=== PATIENT | male | born 1975 | race Caucasian/White ===

== ENCOUNTER 2019-12-10 11:31 | Inpatient (IN) | payer OTHER ==
[2019-12-10 11:37] VITALS: BMI 28.2
[2019-12-10] MEDS ORDERED: SODIUM CHLORIDE 1,000 ML IV STA ×2 (11:38→12:14)
--- NOTE | 2019-12-10 11:38 | PDOC ---
Rapid Medical Evaluation Chief Complaint: Nausea/Vomiting Time Seen by Provider: 12/10/19 11:34 Medical Evaluation: 12/10/19 11:34 I have performed a brief in-person evaluation of this patient. The patient presents with a chief complaint of: Abd pain w/ n/v and dizziness x 2 weeks. No change in BM, dysuria, f/c. H/o ETOH abuse, last drank several hrs ago, feels like he in in withdrawal. Last year had similar sxs and was started on HD "because my kidneys shut down". No longer on HD per pt. Also has h/o pancreatitis and "elevated liver tests" on prior labs Pertinent physical exam findings:Tachy to 107, appears anxious w/ slight tremors I have ordered the following:labs The patient will proceed to the ED for further evaluation Discharge Disposition - Diagnosis Dizziness Nausea & vomiting Qualifiers: Vomiting type: unspecified Vomiting Intractability: non-intractable Qualified Code(s): R11.2 - Nausea with vomiting, unspecified Abdominal pain Qualifiers: Abdominal location: unspecified location Qualified Code(s): R10.9 - Unspecified abdominal pain - Referrals - Patient Instructions - Post Discharge Activity
[2019-12-10] MEDS ORDERED: ONDANSETRON 4 MG/2 ML VIAL IVPUSH ONE (11:39)
[2019-12-10] MEDS ORDERED: FAMOTIDINE 20 MG/50 ML IVPB 20 MG/50 ML MG IVPB ONE ×2 (12:14→12:26)
[2019-12-10] MEDS ORDERED: chlordiazePOXIDE HCL 25 MG CAPSULE PO ONE (12:27)
--- NOTE | 2019-12-10 12:37 | PDOC ---
Documentation entered by Mahnaz Donovan SCRIBE, acting as scribe for Spencer Simms MD. Spencer Simms MD: This documentation has been prepared by the Zion bueno Adrianna, SCRIBE, under my direction and personally reviewed by me in its entirety. I confirm that the documentation accurately reflects all work, treatment, procedures, and medical decision making performed by me. History of Present Illness - General Chief Complaint: Nausea/Vomiting Stated Complaint: NAUSEA/VOMITING Time Seen by Provider: 12/10/19 11:34 - History of Present Illness Initial Comments: The patient is a 44 year old maele, with a significant PMH of EtOH and heroin abuse, pancreatitis, who presents to the ED for evaluation of abdominal pain for 2 weeks. Patient complains of predominantly epigastric abdominal pain with associated nausea, vomit, dehydration, diaphoresis and dizziness. He admits to being a heavy drinker (cannot quantify how much he drinks but states its a lot) as well as snorting heroin. He reports multiple episodes of vomit, noting he cannot keep anything down and he feels SOB with chest tightness when he vomits. Patient reports last drinking 3-4 hours ago, and feels as if he is withdrawing. Patient reports a similar episode of symptoms last year, and was on hemodialysis because of problems with his kidneys (no longer on HD). Patient is interested in detox at this time. Denies fever, chills, cough, diarrhea, constipation, blood in stool, dysuria, hematuria. Allergies: NKA, NKDA Surgical History: Appendectomy Social History: EtOH and heroin abuse PCP: Doesnt have one (referred to Ronnie Block) Past History - Medical History Allergies/Adverse Reactions: Allergies Allergy/AdvReac Type Severity Reaction Status Date / Time No Known Allergies Allergy Verified 12/10/19 11:37 COPD: No Liver Disease: Yes Other medical history: dialysis last year, pancreatitis - Psycho-Social/Smoking History Smoking History: Current every day smoker Information on smoking cessation initiated: No - Substance Abuse Hx (Audit-C & DAST Scrn) How often the patient has a drink containing alcohol: 4 0r more times/wk Number of drinks the patient has on a typical day: 7 to 9 How often the patient has six or more drinks on one occasion: Daily or almost daily Score: In Men: 4 or > Positive; In Women: 3 or > Positive: 11 Screen Result (Pos requires Nsg. Audit-10AR): Positive Review of Systems - Review of Systems Comments:: CONSTITUTIONAL: +Diaphoresis. +Dehydrated. +Heroin and EtOH use. No reported: Fever, Chills, Generalized Weakness, Malaise, Loss of Appetite HEENT: No reported: Rhinorrhea, Nasal Congestion, Throat Pain, Throat Swelling, Difficulty Swallowing, Mouth Swelling, Ear Pain, Eye Pain, Visual Changes CARDIOVASCULAR: +Chest tightness 2/2 multiple episodes of vomit. No reported: Syncope, Palpitations, Irregular Heart Rate, Peripheral Edema RESPIRATORY: +SOB 2/2 multiple episodes of vomit. No reported: Cough, Shortness of Breath, SOB with Exertion, Orthopnea, Wheezing, Stridor, Hemoptysis GASTROINTESTINAL: +Epigastric abdominal pain. +Nausea. +Vomit. No reported: Abdominal Distension, Diarrhea, Constipation, Melena, Hematochezia GENITOURINARY: No reported: Dysuria, Frequency, Urgency, Hesitancy, Flank Pain, Genital Pain MUSCULOSKELETAL: No reported: Myalgia, Arthralgia, Joint Swelling, Back pain, Neck Pain SKIN: No reported: Rash, Itching, Pallor HEMATOLOGIC/IMMUNOLOGIC: No reported: Easy Bleeding, Easy Bruising, Lymphadenopathy, Frequent infections ENDOCRINE: No reported: Unexplained Weight Gain, Unexplained Weight Loss, Heat Intolerance, Cold Intolerance NEUROLOGIC: +Dizziness. No reported: Headache, Focal Weakness, Paresthesias, Vertigo, Unsteady Gait, Seizure, Mental Status Changes, Incontinence PSYCHIATRIC: No reported: Anxiety, Depression *Physical Exam - Vital Signs Last Vital Signs Temp Pulse Resp BP Pulse Ox 98.4 F 106 H 18 135/97 99 12/10/19 11:32 12/10/19 11:32 12/10/19 11:32 12/10/19 11:32 12/10/19 11:32 - Physical Exam GENERAL: The patient is awake, alert, and fully oriented, Nontoxic - in no acute distress. HEAD: Normocephalic, atraumatic. EYES: extraocular movements intact, sclera anicteric, conjunctiva clear. ENT: Normal voice, Moist mucous membranes. NECK: Normal range of motion, supple LUNGS: Breath sounds equal, clear to auscultation bilaterally. No wheezes, no rhonchi, no rales. HEART: Regular rate and rhythm, without murmur, rub or gallop. ABDOMEN: + epigastric TTP, No guarding, no rebound.No CVA tenderness EXTREMITIES: Normal range of motion, no edema. No cyanosis. No erythema, or tenderness. NEUROLOGICAL: No facial asymmetry, Normal speech, PSYCH: Normal mood, normal affect. SKIN: Warm, Dry, normal turgor. Heart Score/ECG Review - ECG Impressions Normal ECG: No Comment:: ECG performed at 13:31 on 12/10/2019 demonstrates normal sinus rhythm at 87bpm. Prolonged QT. ED Treatment Course - LABORATORY CBC & Chemistry Diagram: 12/10/19 12:15 12/10/19 12:15 - RADIOLOGY Radiograph Interpretation: EXAM#: TYPE/EXAM: RESULT: [id number] RAD/CHEST PA LAT Clinical information: Chest pain. Impression Unremarkable examination without evidence of acute lung disease. Reported By: Loly Dasilva MD 12/10/19 13:37 Medical Decision Making - Medical Decision Making 12/10/19 13:42 44 M with abdominal pain, vomiting, CP/SOB. Likely 2/2 ETOH withdrawal. Pt tremulous on exam. - Labs, lipase - EKG - CXR - Librium, GI cocktail 12/10/19 13:43 Labs with lipase >1200 Likely pancreatitis 2/2 ETOH Will obtain RUQ sono to r/o stone Discharge - Discharge Information Problems reviewed: Yes Clinical Impression/Diagnosis: Dizziness, Pancreatitis Nausea & vomiting Qualifiers: Vomiting type: unspecified Vomiting Intractability: non-intractable Qualified Code(s): R11.2 - Nausea with vomiting, unspecified Abdominal pain Qualifiers: Abdominal location: unspecified location Qualified Code(s): R10.9 - Unspecified abdominal pain - Admission Yes - Follow up/Referral - Patient Discharge Instructions - Post Discharge Activity
[2019-12-10 12:42] LABS: BASO % 0.5 % (0-2.0); EOS % 0.2 % (0-4.5); HEMATOCRIT 41.3 % (35.4-49); HEMOGLOBIN 14.3 GM/dL (11.7-16.9); LYMPH % 15.2 % (8-40); MCH 32.3 pg (25.7-33.7); MCHC 34.6 g/dl (32.0-35.9); MEAN CELL VOLUME 93.3 fl (80-96); MEAN PLT VOLUME 9.2 fl (7.5-11.1); MONO % 8.1 % (3.8-10.2); PLATELET COUNT 122 K/MM3 (134-434); RBC 4.43 M/mm3 (4.00-5.60); RDW 14.5 % (11.9-15.9); WHITE BLOOD COUNT 6.3 K/mm3 (4.0-10.0)
[2019-12-10] MEDS ORDERED: chlordiazePOXIDE HCL 25 MG CAPSULE ONE (12:47)
[2019-12-10 13:16] LABS: ALBUMIN 4.8 g/dl (3.4-5.0); ALK PHOS 191 U/L (45-117); BLOOD UREA NITROGEN 43.2 mg/dL (7-18); CALCIUM 9.4 mg/dL (8.5-10.1); CHLORIDE 88 mmol/L (98-107); CO2 27 mmol/L (21-32); CREATININE 1.6 mg/dL (0.55-1.3); GLUCOSE,RANDOM 152 mg/dL (74-106); LIPASE 1299 U/L (73-393); SGOT/AST 204 U/L (15-37); SGPT/ALT 133 U/L (13-61); SODIUM 131 mmol/L (136-145); TOT PROT 9.1 g/dl (6.4-8.2)
[2019-12-10 13:56] LABS: ANION GAP 17 MMOL/L (8-16)
[2019-12-10 14:01] LABS: POTASSIUM 2.8 mmol/L (3.5-5.1)
[2019-12-10] MEDS ORDERED: LORazepam 2 MG/ML SDV VIAL IVPUSH PRN (14:31)
--- NOTE | 2019-12-10 14:39 | EKG ---
Test Reason : Blood Pressure : / mmHG Vent. Rate : 087 BPM Atrial Rate : 087 BPM P-R Int : 114 ms QRS Dur : 084 ms QT Int : 408 ms P-R-T Axes : 067 016 031 degrees QTc Int : 490 ms NORMAL SINUS RHYTHM PROLONGED QT ABNORMAL ECG WHEN COMPARED WITH ECG OF 19-JUL-2004 11:45, QT HAS LENGTHENED Confirmed by MD Salazar, Miles ([id number]) on 12/10/2019 2:39:01 PM Referred By: Confirmed By:Miles Lincoln MD
[2019-12-10] MEDS ORDERED: KCL 10 MEQ IVPB 10 MEQ/100 ML INFUS.BAG IVPB ONE ×2 (14:53→16:24)
[2019-12-10] MEDS: LACTATED RINGERS SOLUTION 1,000 ML IV SCH (15:03)
[2019-12-10] MEDS: KCL 10 MEQ IVPB 10 MEQ/100 ML INFUS.BAG IVPB SCH ×2 (15:03→16:25)
--- NOTE | 2019-12-10 15:33 | HP ---
CHIEF COMPLAINT: abdominal pain PCP: none HISTORY OF PRESENT ILLNESS: Patient is a 44 year old male with past medical history of polysubstance abuse, pancreatitis (3 years ago), ?SUMANTH vs CKD (2018, received dialysis for a month), sciatica, presented to the ED with abdominal pain, accompanied by nausea and vomiting for about 1-2 weeks. 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 For the past 2 weeks, patient started experiencing abdominal pain, described as sharp, intermittent RUQ/epigastric pain. This was accompanied by NBNB vomiting. Patient reported he would keep on drinking alcohol, and his symptoms would improve. Today, patient experienced the abdominal pain again, and decided to come to the ED. Patient denies any fevers, chills, headache, dizziness chest pain, SOB, diarrhea, urinary symptoms.Denies recent illness or sick contacts. ER course was notable for: (1)Lipase >1200, AST 204/ALT 133/Alk phos 191 (2) (3) Recent Travel: denies PAST MEDICAL HISTORY: polysubstance abuse pancreatitis (3 years ago) ?SUMANTH vs CKD (2018, received dialysis for a month) sciatica PAST SURGICAL HISTORY: none Social History: Smokin cigarettes per day >10 years Alcohol: >10 nips of various alcohol in the last 2 months Drugs: snorts 5 bags of heroin a day in the last 2 months Allergies No Known Allergies Allergy (Verified 12/10/19 11:37) HOME MEDICATIONS: none REVIEW OF SYSTEMS CONSTITUTIONAL: Absent: fever, chills, diaphoresis, generalized weakness, malaise, loss of appetite, weight change HEENT: Absent: rhinorrhea, nasal congestion, throat pain, throat swelling, difficulty swallowing, mouth swelling, ear pain, eye pain, visual changes CARDIOVASCULAR: Absent: chest pain, syncope, palpitations, irregular heart rate, lightheadedness, peripheral edema RESPIRATORY: Absent: cough, shortness of breath, dyspnea with exertion, orthopnea, wheezing, stridor, hemoptysis GASTROINTESTINAL:abdominal pain Absent: abdominal distension, nausea, vomiting, diarrhea, constipation, melena, hematochezia GENITOURINARY: Absent: dysuria, frequency, urgency, hesitancy, hematuria, flank pain, genital pain MUSCULOSKELETAL: Absent: myalgia, arthralgia, joint swelling, back pain, neck pain SKIN: Absent: rash, itching, pallor HEMATOLOGIC/IMMUNOLOGIC: Absent: easy bleeding, easy bruising, lymphadenopathy, frequent infections ENDOCRINE: Absent: unexplained weight gain, unexplained weight loss, heat intolerance, cold intolerance NEUROLOGIC: Absent: headache, focal weakness or paresthesias, dizziness, unsteady gait, seizure, mental status changes, bladder or bowel incontinence PSYCHIATRIC: Absent: anxiety, depression, suicidal or homicidal ideation, hallucinations. PHYSICAL EXAMINATION Vital Signs - 24 hr 12/10/19 12/10/19 11:32 14:51 Temperature 98.4 F Pulse Rate 106 H Pulse Rate [ 97 H Left] Respiratory 18 16 Rate Blood Pressure 135/97 Blood Pressure 148/91 [Left] O2 Sat by Pulse 99 99 Oximetry (%) GENERAL: Awake, alert, and fully oriented, in no acute distress. HEAD: Normal with no signs of trauma. EYES:PERRLA, EOMI, extraocular movements intact, sclera anicteric, conjunctiva clear. EARS, NOSE, THROAT: Dry mucous membranes. NECK: Normal range of motion, supple LUNGS: Breath sounds equal, clear to auscultation bilaterally. HEART: Regular rate and rhythm, normal S1 and S2 ABDOMEN: Soft,+RUQ/epigastric tenderness, not distended, normoactive bowel sounds MUSCULOSKELETAL: Normal range of motion at all joints. LOWER EXTREMITIES: 2+ pulses, warm, well-perfused. No peripheral edema. NEUROLOGICAL: Cranial nerves II-XII intact. Normal speech. Normal gait. PSYCHIATRIC: Cooperative. Good eye contact SKIN: Warm, dry, normal turgor Laboratory Results - last 24 hr 12/10/19 12/10/19 12:15 12:15 WBC 6.3 RBC 4.43 Hgb 14.3 Hct 41.3 MCV 93.3 MCH 32.3 MCHC 34.6 RDW 14.5 Plt Count 122 L MPV 9.2 Absolute Neuts (auto) 4.8 Neutrophils % 76.0 Lymphocytes % 15.2 Monocytes % 8.1 Eosinophils % 0.2 Basophils % 0.5 Nucleated RBC % 0 Sodium 131 L Potassium 2.8 L* Chloride 88 L Carbon Dioxide 27 Anion Gap 17 H BUN 43.2 H Creatinine 1.6 H Est GFR (CKD-EPI)AfAm 59.42 Est GFR (CKD-EPI)NonAf 51.27 Random Glucose 152 H Calcium 9.4 Total Bilirubin 1.0 AST 204 H ALT 133 H Alkaline Phosphatase 191 H Creatine Kinase 695 H Creatine Kinase Index 0.4 CK-MB (CK-2) 3.0 Troponin I < 0.02 Total Protein 9.1 H Albumin 4.8 Lipase 1299 H ASSESSMENT/PLAN: Patient is a 44 year old male with past medical history of polysubstance abuse, pancreatitis (3 years ago), ?SUMANTH vs CKD (2018, received dialysis for a month), sciatica, presented to the ED with abdominal pain, accompanied by nausea and vomiting for about 1-2 weeks. #Acute pancreatitis -abdominal pain, Lipase >2000 -CT scan with contrast not done in light of renal function -will keep patient NPo for now -IVF -Protonix 40mg daily -Morphine as needed for pain #SUMANTH vs CKD -unclear if this is patients baseline, as he reported he had renal failure 3 years ago and had dialysis for a month -sister will bring previous records from [place] tomorrow -in the meantime, will give IVF for likely dehydration -urine osm, urine electrolytes, urine creatinine #Transaminitis -AST 204/ALT 133/Alk phos 191 -likely 2/2 alcohol use -Abdominal US - Hepatomegaly with diffuse fatty infiltration of the liver. -Hepatitis panel -lipid panel #Alcohol use -CIWA 8 -will start IV ativan protocol as patient is NPO -neurochecks -seizure and fall precautions -Thiamine, folic acid, mv #Heroin use -COWS 8 -snorts 5 bags of heroin a day for the past 2-3 months -will consult senior publications specialist #Prolonged QTc -QTc 490 , EKG NSR -avoid QT prolonging agents #Hyponatremia #Hypokalemia -Na 131, K 2.8, likely 2/2 poor PO intake, and GI loss from vomiting, etoh use -will replete and continue to monitor -serum osm, urine osm, urine electrolytes #FEN -IV LR @125cc/hr -hypoNa, hypoK, routine bmp monitoring -NPO #Prophylaxis -Heparin 5000u sq tid #Disposition -full code -admit to med surg Visit type - Emergency Visit Emergency Visit: Yes ED Registration Date: 12/10/19 Care time: The patient presented to the Emergency Department on the above date and was hospitalized for further evaluation of their emergent condition. - New Patient This patient is new to me today: Yes Date on this admission: 12/11/19 - Critical Care Critical Care patient: No ATTENDING PHYSICIAN STATEMENT I saw and evaluated the patient. I reviewed the resident's note and discussed the case with the resident. I agree with the resident's findings and plan as documented. SUBJECTIVE: OBJECTIVE: ASSESSMENT AND PLAN:
[2019-12-10 15:36] LABS: EPI CELLS 23 /uL (0-25.1); HYALINE CASTS 5 /uL (0-3.1); URINE APPEARANCE CLOUDY; URINE BACTERIA 2 /uL (0-1359); URINE BILIRUBIN NEGATIVE (NEGATIVE); URINE COLOR YELLOW; URINE GLUCOSE (UA) TRACE (NEGATIVE); URINE KETONE NEGATIVE (NEGATIVE); URINE LEUK ESTERASE NEGATIVE (NEGATIVE); URINE NITRITE NEGATIVE (NEGATIVE); URINE PROTEIN 2+ (NEGATIVE); URINE RBC 15 /uL (0-23.9); URINE WBC 15 /uL (0-25.8)
[2019-12-10] MEDS ORDERED: FOLIC ACID INJECTION - 1 MG, THIAMINE HCL 100 MG, MULTIVIT INJECTION ADULT 10 ML in SOD... IVPB ONE (16:33)
[2019-12-10] MEDS ORDERED: LORazepam 2 MG/ML SDV VIAL ONE (18:38)
[2019-12-10 18:41] LABS: OSMOLALITY,SERUM 307 mosm/kg (278-305)
[2019-12-10] MEDS: LORazepam 2 MG/ML SDV VIAL IVPUSH PRN (18:46)
[2019-12-10] MEDS ORDERED: MORPHINE SULFATE 2 MG/ML VIAL IVPUSH ONE (20:51)
[2019-12-10] MEDS ORDERED: MORPHINE SULFATE 2 MG/ML VIAL ONE (22:00)
[2019-12-10] MEDS ORDERED: HEPARIN NA (PORCINE) 5,000 UNITS/ML 1ML VIAL ONE (22:01)
[2019-12-10] MEDS: HEPARIN NA (PORCINE) 5,000 UNITS/ML 1ML VIAL SQ SCH (22:19)
[2019-12-11] MEDS ORDERED: MORPHINE SULFATE 2 MG/ML VIAL IVPUSH PRN
[2019-12-11] MEDS ORDERED: LORazepam 2 MG/ML SDV VIAL ONE (02:40)
[2019-12-11] MEDS ORDERED: MORPHINE SULFATE 2 MG/ML VIAL ONE (06:06)
[2019-12-11] MEDS ORDERED: HEPARIN NA (PORCINE) 5,000 UNITS/ML 1ML VIAL ONE (06:07)
[2019-12-11] MEDS: HEPARIN NA (PORCINE) 5,000 UNITS/ML 1ML VIAL SQ SCH ×3 (06:22→21:07)
[2019-12-11 07:44] LABS: BASO % 0.7 % (0-2.0); EOS % 0.9 % (0-4.5); HEMATOCRIT 34.5 % (35.4-49); HEMOGLOBIN 11.7 GM/dL (11.7-16.9); LYMPH % 33.3 % (8-40); MCH 31.3 pg (25.7-33.7); MCHC 33.8 g/dl (32.0-35.9); MEAN CELL VOLUME 92.5 fl (80-96); MEAN PLT VOLUME 8.6 fl (7.5-11.1); MONO % 6.3 % (3.8-10.2); NEUT % 58.8 % (42.8-82.8); PLATELET COUNT 100 K/MM3 (134-434); RBC 3.72 M/mm3 (4.00-5.60); RDW 14.3 % (11.9-15.9); WHITE BLOOD COUNT 4.4 K/mm3 (4.0-10.0)
[2019-12-11 07:52] LABS: INR 0.92 (0.83-1.09); PROTHROMBIN TIME (PATIENT) 10.8 SEC (9.7-13.0)
[2019-12-11 07:54] LABS: ACTIVATED PTT 26.6 SECONDS (25.2-36.5)
[2019-12-11 08:06] LABS: ALBUMIN 3.6 g/dl (3.4-5.0); BILIRUBIN,TOTAL 1.2 mg/dL (0.2-1); BLOOD UREA NITROGEN 27.3 mg/dL (7-18); CALCIUM 7.8 mg/dL (8.5-10.1); MAGNESIUM 2.5 mg/dL (1.8-2.4)
[2019-12-11 08:08] LABS: POTASSIUM 2.7 mmol/L (3.5-5.1)
[2019-12-11] MEDS ORDERED: POTASSIUM CHLORIDE TABS 10 MEQ TABLET.ER (FP) PO ONE (08:11)
[2019-12-11] MEDS ORDERED: KCL 10 MEQ IVPB 30 MEQ/300 ML INFUS.BAG IVPB ONE (08:21)
[2019-12-11] MEDS: KCL 10 MEQ IVPB 10 MEQ/100 ML INFUS.BAG IVPB SCH ×3 (08:29→12:25)
--- NOTE | 2019-12-11 08:33 | PN ---
Teaching Attending Note Name of Resident: Malka Adorno ATTENDING PHYSICIAN STATEMENT I saw and evaluated the patient. I reviewed the resident's note and discussed the case with the resident. I agree with the resident's findings and plan as documented. SUBJECTIVE: Mild abdominal pain feels improved tolerating p.o. OBJECTIVE: Vital Signs Temperature 98.3 F 12/11/19 07:58 Pulse Rate 67 12/11/19 07:58 Respiratory Rate 18 12/11/19 07:58 Blood Pressure 114/81 12/11/19 07:58 O2 Sat by Pulse Oximetry (%) 98 12/11/19 07:58 General: Young man, comfortable, not in distress HEENT mucous membranes moist, no anemia, no jaundice, PERRLA, no nystagmus Neck: No JVD, supple, no bruit, thyroid palpably normal, normal carotid pulsations. Chest: Nontender, clear to auscultation bilaterally CVS: S1-S2 regular no murmur/gallop/rub Abdomen: Mild epigastric tenderness, soft, bowel sounds present. Extremities: No edema., No Calf tenderness, pulses present AUTOMATION QA TESTER: AO X3 , no gross motor sensory deficit CBC,CMP WBC 4.4 K/mm3 (4.0-10.0) 12/11/19 05:30 RBC 3.72 M/mm3 (4.00-5.60) L 12/11/19 05:30 Hgb 11.7 GM/dL (11.7-16.9) 12/11/19 05:30 Hct 34.5 % (35.4-49) L D 12/11/19 05:30 MCV 92.5 fl (80-96) 12/11/19 05:30 MCH 31.3 pg (25.7-33.7) 12/11/19 05:30 MCHC 33.8 g/dl (32.0-35.9) 12/11/19 05:30 RDW 14.3 % (11.9-15.9) 12/11/19 05:30 Plt Count 100 K/MM3 (134-434) L 12/11/19 05:30 MPV 8.6 fl (7.5-11.1) 12/11/19 05:30 Absolute Neuts (auto) 2.6 K/mm3 (1.5-8.0) 12/11/19 05:30 Neutrophils % 58.8 % (42.8-82.8) D 12/11/19 05:30 Lymphocytes % 33.3 % (8-40) D 12/11/19 05:30 Monocytes % 6.3 % (3.8-10.2) 12/11/19 05:30 Eosinophils % 0.9 % (0-4.5) D 12/11/19 05:30 Basophils % 0.7 % (0-2.0) 12/11/19 05:30 Nucleated RBC % 0 % (0-0) 12/11/19 05:30 Sodium 136 mmol/L (136-145) 12/11/19 05:30 Potassium 2.7 mmol/L (3.5-5.1) L* 12/11/19 05:30 Chloride 98 mmol/L (98-107) 12/11/19 05:30 Carbon Dioxide 28 mmol/L (21-32) 12/11/19 05:30 Anion Gap 10 MMOL/L (8-16) 12/11/19 05:30 BUN 27.3 mg/dL (7-18) H 12/11/19 05:30 Creatinine 1.0 mg/dL (0.55-1.3) 12/11/19 05:30 Est GFR (CKD-EPI)AfAm 104.88 12/11/19 05:30 Est GFR (CKD-EPI)NonAf 90.49 12/11/19 05:30 Random Glucose 115 mg/dL (74-106) H 12/11/19 05:30 Serum Osmolality 307 mosm/kg (278-305) H 12/10/19 12:15 Calcium 7.8 mg/dL (8.5-10.1) L 12/11/19 05:30 Phosphorus 2.0 mg/dL (2.5-4.9) L 12/11/19 05:30 Magnesium 2.5 mg/dL (1.8-2.4) H 12/11/19 05:30 Total Bilirubin 1.2 mg/dL (0.2-1) H 12/11/19 05:30 AST 183 U/L (15-37) H 12/11/19 05:30 ALT 108 U/L (13-61) H 12/11/19 05:30 Alkaline Phosphatase 139 U/L (45-117) H 12/11/19 05:30 Creatine Kinase 695 U/L (26-308) H 12/10/19 12:15 Creatine Kinase Index 0.4 % (0.0-5.0) 12/10/19 12:15 CK-MB (CK-2) 3.0 ng/mL (0.5-3.6) 12/10/19 12:15 Troponin I < 0.02 ng/ml (0.00-0.05) 12/10/19 12:15 Total Protein 7.0 g/dl (6.4-8.2) 12/11/19 05:30 Albumin 3.6 g/dl (3.4-5.0) 12/11/19 05:30 Triglycerides 430 mg/dL (0-150) H 12/11/19 05:30 Cholesterol 252 mg/dL (50-200) H 12/11/19 05:30 Total LDL Cholesterol 116 mg/dL (5-100) H 12/11/19 05:30 HDL Cholesterol 82 mg/dL (40-60) H 12/11/19 05:30 Lipase 1299 U/L (73-393) H 12/10/19 12:15 TSH 0.92 uIU/ml (0.358-3.74) 12/11/19 05:30 Active Medications Folic Acid (Folic Acid -) 1 mg PO DAILY [facility] Heparin Sodium (Porcine) (Heparin -) 5,000 unit SQ TID [facility] Last Admin: 12/11/19 06:22 Dose: 5,000 unit Documented by: Lactated Ringer's (Lactated Ringers Solution) 1,000 mls @ 125 mls/hr IV ASDIR [facility] Last Admin: 12/10/19 15:03 Dose: 125 mls/hr Documented by: Potassium Chloride (Potassium Chloride 10 Meq Premix Ivpb -) 10 meq in 100 mls @ 100 mls/hr IVPB Q60M [facility] Stop: 12/11/19 11:14 Last Admin: 12/11/19 08:29 Dose: 100 mls/hr Documented by: Lorazepam (Ativan Injection -) 1 mg IVPUSH Q3H PRN PRN Reason: WITHDRAWAL(CONT SUBST) Last Admin: 12/10/19 18:46 Dose: 1 mg Documented by: Morphine Sulfate (Morphine Sulfate) 2 mg IVPUSH Q6H PRN PRN Reason: PAIN LEVEL 7 - 10 Last Admin: 12/11/19 06:22 Dose: 2 mg Documented by: Multivitamins/Minerals/Vitamin C (Tab-A-Vit -) 1 tab PO DAILY [facility] Pantoprazole Sodium (Protonix Iv) 40 mg IVPUSH DAILY [facility] Thiamine HCl (Vitamin B1 -) 100 mg PO DAILY [facility] ASSESSMENT AND PLAN: 44 years old man history of alcohol abuse, alcoholic hepatitis as per patient he was sober for a while 2 months ago relapse has been drinking 2 days ago developed epigastric pain, nausea and vomiting came to ED for evaluation work-up shows elevated lipase dehydration hypokalemia, overnight symptoms improved now able to tolerate p.o. Active issues: 1. Acute alcoholic pancreatitis: Lipase level 1299, abdominal exam no clinical sign of acute abdomen, abdominal ultrasound does not show any CBD stone, tolerating p.o., advance p.o. as tolerates, continue pain meds current management, IV hydration 2. Acute alcoholic gastritis: Continue PPI and Zofran as needed QTC is normal 3. Alcohol intoxication/withdrawal: Continue alcohol withdrawal protocol, thiamine, follow-up BMP and magnesium level: 4. Hypokalemia: Serum potassium 2.7 repleted 5. Transaminitis: Follow-up LFTs most likely due to alcohol induced liver injury Rest continue current management Discussed with the resident.
[2019-12-11] MEDS ORDERED: POTASSIUM PHOSPHATE 30 MM in SODIUM CHLORIDE 500 ML IVPB ONE (09:03)
[2019-12-11] MEDS ORDERED: MULTIVITAMINS (DAILY MVI) TABLET (FP) ONE (10:06)
[2019-12-11] MEDS ORDERED: PANTOPRAZOLE SODIUM 40 MG VIAL ONE (10:06)
[2019-12-11] MEDS ORDERED: THIAMINE HCL 100 MG TABLET (FP) ONE (10:06)
[2019-12-11] MEDS ORDERED: FOLIC ACID 1 MG TABLET (FP) ONE (10:06)
[2019-12-11] MEDS: THIAMINE HCL 100 MG TABLET (FP) PO SCH (10:22)
[2019-12-11] MEDS: MULTIVITAMINS (DAILY MVI) TABLET (FP) PO SCH (10:22)
[2019-12-11] MEDS: FOLIC ACID 1 MG TABLET (FP) PO SCH (10:22)
[2019-12-11] MEDS: PANTOPRAZOLE SODIUM 40 MG VIAL IVPUSH SCH (10:22)
[2019-12-11] MEDS: LORazepam 2 MG/ML SDV VIAL IVPUSH PRN (12:25)
[2019-12-11] MEDS ORDERED: ACETAMINOPHEN 325 MG TABLET (FP) PO PRN (13:52)
--- NOTE | 2019-12-11 13:54 | PN ---
Physical Exam: SUBJECTIVE: Patient seen and examined OBJECTIVE: Vital Signs Temperature 98.3 F 12/11/19 07:58 Pulse Rate 67 12/11/19 07:58 Respiratory Rate 18 12/11/19 13:31 Blood Pressure 114/81 12/11/19 07:58 O2 Sat by Pulse Oximetry (%) 99 12/11/19 13:31 GENERAL: Awake, alert, and fully oriented, in no acute distress. HEAD: Normal with no signs of trauma. EYES:PERRLA, EOMI, extraocular movements intact, sclera anicteric, conjunctiva clear. EARS, NOSE, THROAT: Dry mucous membranes. NECK: Normal range of motion, supple LUNGS: Breath sounds equal, clear to auscultation bilaterally. HEART: Regular rate and rhythm, normal S1 and S2 ABDOMEN: Soft,nontender, not distended, normoactive bowel sounds MUSCULOSKELETAL: Normal range of motion at all joints. LOWER EXTREMITIES: 2+ pulses, warm, well-perfused. No peripheral edema. NEUROLOGICAL: Cranial nerves II-XII intact. Normal speech. Normal gait. PSYCHIATRIC: Cooperative. Good eye contact SKIN: Warm, dry, normal turgor Laboratory Results - last 24 hr 12/10/19 12/10/19 12/10/19 12:15 15:00 15:00 WBC RBC Hgb Hct MCV MCH MCHC RDW Plt Count MPV Absolute Neuts (auto) Neutrophils % Lymphocytes % Monocytes % Eosinophils % Basophils % Nucleated RBC % PT with INR INR PTT (Actin FS) Sodium 131 L Potassium 2.8 L* Chloride 88 L Carbon Dioxide 27 Anion Gap 17 H BUN 43.2 H Creatinine 1.6 H Est GFR (CKD-EPI)AfAm 59.42 Est GFR (CKD-EPI)NonAf 51.27 Random Glucose 152 H Serum Osmolality 307 H Calcium 9.4 Phosphorus Magnesium Total Bilirubin 1.0 AST 204 H ALT 133 H Alkaline Phosphatase 191 H Creatine Kinase 695 H Creatine Kinase Index 0.4 CK-MB (CK-2) 3.0 Troponin I < 0.02 Total Protein 9.1 H Albumin 4.8 Triglycerides Cholesterol Total LDL Cholesterol HDL Cholesterol Lipase 1299 H TSH Urine Color Yellow Urine Appearance Cloudy Urine pH 6.0 Ur Specific [place] 1.021 Urine Protein 2+ H Urine Glucose (UA) Trace Urine Ketones Negative Urine Blood 1+ H Urine Nitrite Negative Urine Bilirubin Negative Urine Urobilinogen 1.0 Ur Leukocyte Esterase Negative Urine WBC (Auto) 15 Urine RBC (Auto) 15 Urine Casts (Auto) 5 U Pathogenic Cast Auto Non seen U Epithel Cells (Auto) 23 Urine Bacteria (Auto) 2 Urine Osmolality 583 Ur Random Creatinine 247.0 H Ur Random Sodium < 18 L Ur Random Potassium 22.0 L Ur Random Chloride 20 L 12/11/19 12/11/19 12/11/19 05:30 05:30 05:30 WBC 4.4 RBC 3.72 L Hgb 11.7 Hct 34.5 L D MCV 92.5 MCH 31.3 MCHC 33.8 RDW 14.3 Plt Count 100 L MPV 8.6 Absolute Neuts (auto) 2.6 Neutrophils % 58.8 D Lymphocytes % 33.3 D Monocytes % 6.3 Eosinophils % 0.9 D Basophils % 0.7 Nucleated RBC % 0 PT with INR 10.80 INR 0.92 PTT (Actin FS) 26.6 Sodium 136 Potassium 2.7 L* Chloride 98 Carbon Dioxide 28 Anion Gap 10 BUN 27.3 H Creatinine 1.0 Est GFR (CKD-EPI)AfAm 104.88 Est GFR (CKD-EPI)NonAf 90.49 Random Glucose 115 H Serum Osmolality Calcium 7.8 L Phosphorus 2.0 L Magnesium 2.5 H Total Bilirubin 1.2 H AST 183 H ALT 108 H Alkaline Phosphatase 139 H Creatine Kinase Creatine Kinase Index CK-MB (CK-2) Troponin I Total Protein 7.0 Albumin 3.6 Triglycerides 430 H Cholesterol 252 H Total LDL Cholesterol 116 H HDL Cholesterol 82 H Lipase TSH 0.92 Urine Color Urine Appearance Urine pH Ur Specific [place] Urine Protein Urine Glucose (UA) Urine Ketones Urine Blood Urine Nitrite Urine Bilirubin Urine Urobilinogen Ur Leukocyte Esterase Urine WBC (Auto) Urine RBC (Auto) Urine Casts (Auto) U Pathogenic Cast Auto U Epithel Cells (Auto) Urine Bacteria (Auto) Urine Osmolality Ur Random Creatinine Ur Random Sodium Ur Random Potassium Ur Random Chloride Active Medications Generic Name Dose Route Start Last Admin Trade Name Freq PRN Reason Stop Dose Admin Folic Acid 1 mg 12/11/19 10:00 12/11/19 10:22 Folic Acid - PO 1 mg DAILY ART Administration Heparin Sodium (Porcine) 5,000 unit 12/10/19 22:00 12/11/19 06:22 Heparin - SQ 5,000 unit TID ART Administration Lactated Ringer's 1,000 mls @ 125 mls/hr 12/10/19 14:30 12/10/19 15:03 Lactated Ringers Solution IV 125 mls/hr ASDIR ART Administration Potassium Phosphate 30 mm/ 510 mls @ 63.75 mls/hr 12/11/19 09:03 12/11/19 10:22 Sodium Chloride IVPB 12/11/19 17:02 63.75 mls/hr ONCE ONE Administration 30 MM/8 HR Lorazepam 1 mg 12/10/19 17:11 12/11/19 12:25 Ativan Injection - IVPUSH 1 mg Q3H PRN Administration WITHDRAWAL(CONT SUBST) Morphine Sulfate 2 mg 12/11/19 00:00 12/11/19 06:22 Morphine Sulfate IVPUSH 2 mg Q6H PRN Administration PAIN LEVEL 7 - 10 Multivitamins/Minerals/Vitamin C 1 tab 12/11/19 10:00 12/11/19 10:22 Tab-A-Vit - PO 1 tab DAILY ART Administration Pantoprazole Sodium 40 mg 12/11/19 10:00 12/11/19 10:22 Protonix Iv IVPUSH 40 mg DAILY ART Administration Thiamine HCl 100 mg 12/11/19 10:00 12/11/19 10:22 Vitamin B1 - PO 100 mg DAILY ART Administration ASSESSMENT/PLAN: Patient is a 44 year old male with past medical history of polysubstance abuse, pancreatitis (3 years ago), ?SUMANTH vs CKD (2018, received dialysis for a month), sciatica, presented to the ED with abdominal pain, accompanied by nausea and vomiting for about 1-2 weeks. #Acute pancreatitis -abdominal pain improving -CT scan with contrast not done in light of renal function -advance diet as tolerated -IVF -Protonix 40mg daily #SUMANTH vs CKD -unclear if this is patients baseline, as he reported he had renal failure 3 years ago and had dialysis for a month -will give IVF for likely dehydration -urine osm, urine electrolytes, urine creatinine #Transaminitis -AST 204/ALT 133/Alk phos 191 -likely 2/2 alcohol use -Abdominal US - Hepatomegaly with diffuse fatty infiltration of the liver. -Hepatitis panel -lipid panel #Alcohol use -CIWA 8 -will start IV ativan protocol as patient is NPO -neurochecks -seizure and fall precautions -Thiamine, folic acid, mv #Heroin use -COWS 8 -snorts 5 bags of heroin a day for the past 2-3 months -will consult online merchandising specialist #Prolonged QTc -QTc 490 , EKG NSR -avoid QT prolonging agents #Hyponatremia #Hypokalemia -Na 131, K 2.8, likely 2/2 poor PO intake, and GI loss from vomiting, etoh use -will replete and continue to monitor -serum osm, urine osm, urine electrolytes #FEN -IV LR @125cc/hr -hypoNa, hypoK, routine bmp monitoring -Full liquid diet, advance as tolerated #Prophylaxis -Heparin 5000u sq tid #Disposition -full code -admit to med surg Visit type - Emergency Visit Emergency Visit: Yes ED Registration Date: 12/10/19 Care time: The patient presented to the Emergency Department on the above date and was hospitalized for further evaluation of their emergent condition. - New Patient This patient is new to me today: No - Critical Care Critical Care patient: No ATTENDING PHYSICIAN STATEMENT I saw and evaluated the patient. I reviewed the resident's note and discussed the case with the resident. I agree with the resident's findings and plan as documented. SUBJECTIVE: OBJECTIVE: ASSESSMENT AND PLAN:
[2019-12-11] MEDS: LACTATED RINGERS SOLUTION 1,000 ML IV SCH (15:19)
[2019-12-11] MEDS ORDERED: chlordiazePOXIDE HCL 10 MG CAPSULE PO PRN (16:26)
[2019-12-11] MEDS ORDERED: METHADONE HCL 10 MG TABLET PO ONE (16:45)
[2019-12-11] MEDS: chlordiazePOXIDE HCL 25 MG CAPSULE PO SCH (21:07)
[2019-12-11] MEDS: cloNIDine HCL 0.1 MG TABLET PO PRN (21:08)
[2019-12-12] MEDS: chlordiazePOXIDE HCL 25 MG CAPSULE PO SCH ×2 (05:43→14:00)
[2019-12-12] MEDS: HEPARIN NA (PORCINE) 5,000 UNITS/ML 1ML VIAL SQ SCH ×2 (05:43→14:02)
[2019-12-12] MEDS: cloNIDine HCL 0.1 MG TABLET PO PRN (05:43)
[2019-12-12 07:53] LABS: BASO % 0.5 % (0-2.0); EOS % 0.9 % (0-4.5); HEMATOCRIT 35.4 % (35.4-49); LYMPH % 25.2 % (8-40); MCH 31.9 pg (25.7-33.7); MCHC 33.9 g/dl (32.0-35.9); MEAN CELL VOLUME 94.2 fl (80-96); MEAN PLT VOLUME 8.9 fl (7.5-11.1); MONO % 7.1 % (3.8-10.2); NEUT % 66.3 % (42.8-82.8); PLATELET COUNT 118 K/MM3 (134-434); RBC 3.76 M/mm3 (4.00-5.60); RDW 14.2 % (11.9-15.9); WHITE BLOOD COUNT 3.9 K/mm3 (4.0-10.0)
[2019-12-12 08:23] LABS: ALBUMIN 3.8 g/dl (3.4-5.0); BILIRUBIN,TOTAL 0.7 mg/dL (0.2-1); BLOOD UREA NITROGEN 16.3 mg/dL (7-18); CALCIUM 8.2 mg/dL (8.5-10.1); CREATININE 0.9 mg/dL (0.55-1.3); POTASSIUM 3.6 mmol/L (3.5-5.1); TOT PROT 7.2 g/dl (6.4-8.2)
[2019-12-12] MEDS ORDERED: METHADONE HCL 5 MG TABLET PO ONE (10:00)
[2019-12-12] MEDS: PANTOPRAZOLE SODIUM 40 MG VIAL IVPUSH SCH (10:35)
[2019-12-12] MEDS: FOLIC ACID 1 MG TABLET (FP) PO SCH (10:35)
[2019-12-12] MEDS: THIAMINE HCL 100 MG TABLET (FP) PO SCH (10:35)
[2019-12-12] MEDS: MULTIVITAMINS (DAILY MVI) TABLET (FP) PO SCH (10:35)
[2019-12-12] MEDS: LACTATED RINGERS SOLUTION 1,000 ML IV SCH ×2 (10:36→16:43)
--- NOTE | 2019-12-12 12:20 | PN ---
Teaching Attending Note Name of Resident: Malka Adorno ATTENDING PHYSICIAN STATEMENT I saw and evaluated the patient. I reviewed the resident's note and discussed the case with the resident. I agree with the resident's findings and plan as documented. SUBJECTIVE: Overnight patient episode of agitation, tolerating p.o. less abdominal pain OBJECTIVE: Vital Signs Temperature 98.4 F 12/12/19 05:27 Pulse Rate 69 12/12/19 05:27 Respiratory Rate 20 12/12/19 05:27 Blood Pressure 118/75 12/12/19 05:27 O2 Sat by Pulse Oximetry (%) 99 12/11/19 21:00 General: Young man, irritable otherwise comfortable, not in distress HEENT mucous membranes moist, no anemia, no jaundice, PERRLA, no nystagmus Neck: No JVD, supple, no bruit, thyroid palpably normal, normal carotid pulsations. Chest: Nontender, clear to auscultation bilaterally CVS: S1-S2 regular no murmur/gallop/rub Abdomen: Mild epigastric tenderness, soft, bowel sounds present. 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 , no gross motor sensory deficit CBC, BMP 12/12/19 07:19 12/12/19 07:19 Lipase: 1299: 2292: 1997 Active Medications Folic Acid (Folic Acid -) 1 mg PO DAILY [facility] Heparin Sodium (Porcine) (Heparin -) 5,000 unit SQ TID [facility] Last Admin: 12/11/19 06:22 Dose: 5,000 unit Documented by: Lactated Ringer's (Lactated Ringers Solution) 1,000 mls @ 125 mls/hr IV ASDIR [facility] Last Admin: 12/10/19 15:03 Dose: 125 mls/hr Documented by: Potassium Chloride (Potassium Chloride 10 Meq Premix Ivpb -) 10 meq in 100 mls @ 100 mls/hr IVPB Q60M [facility] Stop: 12/11/19 11:14 Last Admin: 12/11/19 08:29 Dose: 100 mls/hr Documented by: Lorazepam (Ativan Injection -) 1 mg IVPUSH Q3H PRN PRN Reason: WITHDRAWAL(CONT SUBST) Last Admin: 12/10/19 18:46 Dose: 1 mg Documented by: Morphine Sulfate (Morphine Sulfate) 2 mg IVPUSH Q6H PRN PRN Reason: PAIN LEVEL 7 - 10 Last Admin: 12/11/19 06:22 Dose: 2 mg Documented by: Multivitamins/Minerals/Vitamin C (Tab-A-Vit -) 1 tab PO DAILY ART Pantoprazole Sodium (Protonix Iv) 40 mg IVPUSH DAILY ART Thiamine HCl (Vitamin B1 -) 100 mg PO DAILY ART ASSESSMENT AND PLAN: 44 years old man history of alcohol abuse, alcoholic hep atitis as per patient he was sober for a while 2 months ago relapse has been drinking 2 days ago developed epigastric pain, nausea and vomiting came to ED for evaluation work-up shows elevated lipase dehydration hypokalemia, overnight symptoms improved now able to tolerate p.o. Active issues: 1. Acute alcoholic pancreatitis: Tolerating p.o., less abdominal pain, lipase level is trending down continue current management follow-up lipase level 2. Acute alcoholic gastritis: Continue PPI and Zofran as needed QTC is normal, patient denies any nausea vomiting 3. Alcohol intoxication/withdrawal: Continue alcohol withdrawal protocol, thiamine, follow-up BMP and magnesium level: 4. Hypokalemia: repleted 5. Transaminitis: Follow-up LFTs most likely due to alcohol induced liver injury 6. Opiate abuse/withdrawal: Last developed nausea, diarrhea and history of present abuse, discussed with addiction medicine recommended p.o. methadone the resident. Patient can be transferred to [facility] [place] for detox . Plan discussed with the resident.
[2019-12-12 14:17] VITALS: BP 114/74; PULSE 73; TEMP 98.6
--- NOTE | 2019-12-12 14:28 | DS ---
Physical Exam: SUBJECTIVE: Patient seen and examined at bedside. No acute events overnight.Patient tolerating regular diet. OBJECTIVE: Vital Signs Temperature 98.6 F 12/12/19 14:00 Pulse Rate 73 12/12/19 14:00 Respiratory Rate 20 12/12/19 14:00 Blood Pressure 114/74 12/12/19 14:00 O2 Sat by Pulse Oximetry (%) 99 12/12/19 09:00 PHYSICAL EXAM GENERAL: Awake, alert, and fully oriented, in no acute distress. HEAD: Normal with no signs of trauma. EYES:PERRLA, EOMI, extraocular movements intact, sclera anicteric, conjunctiva clear. EARS, NOSE, THROAT: Dry mucous membranes. NECK: Normal range of motion, supple LUNGS: Breath sounds equal, clear to auscultation bilaterally. HEART: Regular rate and rhythm, normal S1 and S2 ABDOMEN: Soft,nontender, not distended, normoactive bowel sounds MUSCULOSKELETAL: Normal range of motion at all joints. LOWER EXTREMITIES: 2+ pulses, warm, well-perfused. No peripheral edema. NEUROLOGICAL: Cranial nerves II-XII intact. Normal speech. Normal gait. PSYCHIATRIC: Cooperative. Good eye contact SKIN: Warm, dry, normal turgor LABS Laboratory Results - last 24 hr 12/10/19 12/11/19 12/11/19 15:00 05:30 05:30 WBC RBC Hgb Hct MCV MCH MCHC RDW Plt Count MPV Absolute Neuts (auto) Neutrophils % Lymphocytes % Monocytes % Eosinophils % Basophils % Nucleated RBC % Sodium 136 Potassium 2.7 L* Chloride 98 Carbon Dioxide 28 Anion Gap 10 BUN 27.3 H Creatinine 1.0 Est GFR (CKD-EPI)AfAm 104.88 Est GFR (CKD-EPI)NonAf 90.49 Random Glucose 115 H Calcium 7.8 L Phosphorus 2.0 L Magnesium 2.5 H Total Bilirubin 1.2 H AST 183 H ALT 108 H Alkaline Phosphatase 139 H Total Protein 7.0 Albumin 3.6 Triglycerides 430 H Cholesterol 252 H Total LDL Cholesterol 116 H HDL Cholesterol 82 H Lipase 2676 H TSH 0.92 COVID-19 ([place]) Not detected Hep A IgM Ab Confirm Negative Hep Bs Antigen Negative Hep B Core IgM Ab Negative Hepatitis C Ab (EIA) 10.5 H 12/12/19 12/12/19 07:19 07:19 WBC 3.9 L RBC 3.76 L Hgb 12.0 Hct 35.4 MCV 94.2 MCH 31.9 MCHC 33.9 RDW 14.2 Plt Count 118 L MPV 8.9 Absolute Neuts (auto) 2.6 Neutrophils % 66.3 Lymphocytes % 25.2 D Monocytes % 7.1 Eosinophils % 0.9 Basophils % 0.5 Nucleated RBC % 0 Sodium 138 Potassium 3.6 Chloride 106 Carbon Dioxide 22 Anion Gap 10 BUN 16.3 Creatinine 0.9 Est GFR (CKD-EPI)AfAm 119.13 Est GFR (CKD-EPI)NonAf 102.79 Random Glucose 135 H Calcium 8.2 L Phosphorus Magnesium 2.0 Total Bilirubin 0.7 AST 108 H ALT 101 H Alkaline Phosphatase 130 H Total Protein 7.2 Albumin 3.8 Triglycerides Cholesterol Total LDL Cholesterol HDL Cholesterol Lipase 1971 H TSH COVID-19 ([place]) Hep A IgM Ab Confirm Hep Bs Antigen Hep B Core IgM Ab Hepatitis C Ab (EIA) HOSPITAL COURSE: Date of Admission:12/10/19 Date of Discharge: 12/12/19 Patient is a 44 year old male with past medical history of polysubstance abuse, pancreatitis (3 years ago), ?SUMNATH vs CKD (2018, received dialysis for a month), sciatica, presented to the ED with abdominal pain, accompanied by nausea and vomiting for about 1-2 weeks. #Acute pancreatitis -abdominal pain improved -CT scan with contrast not done in light of renal function -advance diet as tolerated -Protonix 40mg daily #SUMANTH -resolved with IVF, likely dehydration #Transaminitis -trending down -likely 2/2 alcohol use -Abdominal US - Hepatomegaly with diffuse fatty infiltration of the liver. #Alcohol use -librium protocol -seizure and fall precautions -Thiamine, folic acid, mv #Heroin use -methadone started -will consult migration specialist Minutes to complete discharge: 37 Discharge Summary Problems reviewed: Yes Reason For Visit: PANCREATITIS Current Active Problems Abdominal pain (Acute) Dizziness (Acute) Nausea & vomiting (Acute) Pancreatitis (Acute) Condition: Stable - Instructions Diet, Activity, Other Instructions: Your visit You were admitted to the hospital because you had belly pain. You were found to have an inflammation of your pancreas. This was likely because of heavy alcohol drinking. We have managed your pancreatitis with bowel rest and IV fluids. You will also be sent to [facility] [place] [facility] to complete detox for alcohol and heroin. Follow up Please follow up with your primary care doctor within 1 week. If you do not have one, we have provided a referral for the resident medical clinic at [facility]. Please call the office to schedule an appointment. Additional info Please call 911 or go to the ED if with any worsening fevers, chills, headache, dizziness, chest pain, shortness of breath, belly pain, diarrhea, or any new concerns noted. Referrals: [facility] [place] [Provider Group] Disposition: TRANSFER ACUTE CARE/OTHER HOSP This patient is new to me today: No Emergency Visit: Yes ED Registration Date: 12/10/19 Care time: The patient presented to the Emergency Department on the above date and was hospitalized for further evaluation of their emergent condition. Critical Care patient: No - Discharge Referral Referred to [facility] No ATTENDING PHYSICIAN STATEMENT I saw and evaluated the patient. I reviewed the resident's note and discussed the case with the resident. I agree with the resident's findings and plan as documented. SUBJECTIVE: OBJECTIVE: ASSESSMENT AND PLAN:
[2019-12-13] MEDS ORDERED: chlordiazePOXIDE 5 MG CAPSULE PO SCH (05:00)
[2019-12-13] MEDS ORDERED: METHADONE HCL 10 MG TABLET PO ONE (10:00)
[2019-12-14] MEDS ORDERED: chlordiazePOXIDE HCL 10 MG CAPSULE PO PRN
[2019-12-14] MEDS ORDERED: chlordiazePOXIDE HCL 10 MG CAPSULE PO SCH (05:00)
[2019-12-14] MEDS ORDERED: METHADONE HCL 5 MG TABLET PO ONE (06:00)
== END 2019-12-12 16:55 | disposition short-term general hospital (02) | DRG 282 ==
LOC: JER 11:31 → JERBED 14:09 → J6WEST-2 12-11 11:23
PROVIDERS: ADMIT Internal Medicine; ATTEND Internal Medicine
PROC: HZ2ZZZZ Detoxification Services for Substance Abuse Treatment (ICD-10-PCS; principal; 2019-12-10)
DX: K85.20 Alcohol induced acute pancreatitis without necrosis or infection (principal); E87.6 Hypokalemia; R11.2 Nausea with vomiting, unspecified; F17.210 Nicotine dependence, cigarettes, uncomplicated; F10.239 Alcohol dependence with withdrawal, unspecified; F10.229 Alcohol dependence with intoxication, unspecified; R74.0 Nonspecific elevation of levels of transaminase and lactic acid dehydrogenase [LDH]; F11.23 Opioid dependence with withdrawal; K29.20 Alcoholic gastritis without bleeding; R10.13 Epigastric pain; R10.9 Unspecified abdominal pain; E86.0 Dehydration; R61 Generalized hyperhidrosis; E87.1 Hypo-osmolality and hyponatremia; N17.9 Acute kidney failure, unspecified; I45.81 Long QT syndrome; R16.0 Hepatomegaly, not elsewhere classified; K76.0 Fatty (change of) liver, not elsewhere classified; Y90.9 Presence of alcohol in blood, level not specified; Z72.89 Other problems related to lifestyle; Z56.2 Threat of job loss
CPT/HCPCS: 36415; 71046-TC-FY; 76700-TC; 80053; 80061; 80074; 81003; 82436; 82550; 82553; 82565; 83690; 83721; 83735; 83930; 83935; 84100; 84133; 84300; 84443; 84484; 85025; 85610; 85730; 93005; 93010; 99285-25; J0735; J1644; U0003

== ENCOUNTER 2019-12-12 18:39 | Inpatient (IN) | payer OTHER ==
[2019-12-12 19:11] VITALS: BMI 24.9
--- NOTE | 2019-12-12 21:04 | HP ---
COWS - Scale Resting Pulse: 0= [place] 80 or Below Sweatin= Beads of Sweat on Face Restless Observation: 5= Unable to Sit Still Pupil Size: 1= Pupils >than Normal Bone or Joint Aches: 4=Acute Joint/Muscle Pain Runny Nose/ Eye Tearin= Runny Nose/Eyes GI Upset > 30mins: 1= Stomach Cramp Tremor Observation: 2= Slight Tremor Visible Yawning Observation: 0= None Anxiety or Irritability: 2=Irritable/Anxious Goose Flesh Skin: 0=Smooth Skin COWS Score: 20 CIWA Score Nausea/Vomitin-Mild Nausea/No Vomiting Muscle Tremors: 2 Anxiety: 4-Mod. Anxious/Guarded Agitation: 3 Paroxysmal Sweats: 3 Orientation: 1-Uncertain about Date Tacttile Disturbances: 0-None Auditory Disturbances: 0-None Visual Disturbances: 0-None Headache: 3-Moderate CIWA-Ar Total Score: 17 - Admission Criteria OASAS Guidelines: Admission for Medically Managed Detox: Requires at least one of the followin. CIWA greater than 12 2. Seizures within the past 24 hours 3. Delirium tremens within the past 24 hours 4. Hallucinations within the past 24 hours 5. Acute intervention needed for co occurring medical disorder 6. Acute intervention needed for co occurring psychiatric disorder 7. Severe withdrawal that cannot be handled at a lower level of care (continued vomiting, continued diarrhea, abnormal vital signs) requiring intravenous medication and/or fluids 8. Patient presents the following: CIWA greater than 12 Admission Criteria Met: Admission criteria met Admitting History and Physical - Smoking History Smoking history: Current every day smoker Have you smoked in the past 12 months: Yes Aproximately how many cigarettes per day: [address] [facility] Chief Complaint: here for alcohol/ heroin detox. Allergies/Adverse Reactions: Allergies Allergy/AdvReac Type Severity Reaction Status Date / Time No Known Allergies Allergy Verified 12/10/19 11:37 History of Present Illness: 44 Y.O. MALE HERE FOR ALCOHOL DETOX. CLIENT IS REFERRED BY [facility] AFTER BEING ADMITTED AND TREATED FOR PANCREATITIS FROM 12/10/2019. WHILE THERE HE WAS ALSO STARTED ON LIBRIUM/ METHADONE TAPER DETOX. HE WAS SENT HERE TODAY AFTER BEING MEDICALLY CLEARED TO COMPLETE HIS DETOX. CLIENT REPORTS DAILY USE OF ALCOHOL AND HEROIN. + EYE COMBAT [employer], HX/O IVDU , LAST TIME 3 YEARS AGO. + HX/O DRUG OVERDOSE, BLACK OUTS AND ALCOHOL WITHDRAWAL SEIZURES, LAST EPISODE 1 YEAR AGO. CLIENT REPORTS CLEAN TIME OF 3 YEARS RELAPSING 3 MONTHS AGO. LIVES ALONE, EMPLOYED, DENIES LEGALS. 12/10/19- COVID TEST NEGATIVE OSPITAL COURSE: Date of Admission:12/10/19 Date of Discharge: 12/12/19 Patient is a 44 year old male with past medical history of polysubstance abuse, pancreatitis (3 years ago), ?SUMANTH vs CKD (2018, received dialysis for a month), sciatica, presented to the ED with abdominal pain, accompanied by nausea and vomiting for about 1-2 weeks. #Acute pancreatitis -abdominal pain improved -CT scan with contrast not done in light of renal function -advance diet as tolerated -Protonix 40mg daily #SUMANTH -resolved with IVF, likely dehydration #Transaminitis -trending down -likely 2/2 alcohol use -Abdominal US - Hepatomegaly with diffuse fatty infiltration of the liver. #Alcohol use -librium protocol -seizure and fall precautions -Thiamine, folic acid, mv #Heroin use -methadone started -will consult adjudication specialist Minutes to complete discharge: 37 Discharge Summary Problems reviewed: Yes Reason For Visit: PANCREATITIS Current Active Problems Abdominal pain (Acute) Dizziness (Acute) Nausea & vomiting (Acute) Pancreatitis (Acute) Condition: Stable - Instructions Diet, Activity, Other Instructions: Your visit You were admitted to the hospital because you had belly pain. You were found to have an inflammation of your pancreas. This was likely because of heavy alcohol drinking. We have managed your pancreatitis with bowel rest and IV fluids. You will also be sent to [facility] to complete detox for alcohol and heroin. Follow up Please follow up with your primary care doctor within 1 week. If you do not have one, we have provided a referral for the resident medical clinic at [facility]. Please call the office to schedule an appointment. Additional info Please call 911 or go to the ED if with any worsening fevers, chills, headache, dizziness, chest pain, shortness of breath, belly pain, diarrhea, or any new concerns noted. Referrals: [facility] [place] [Provider Group] Disposition: TRANSFER ACUTE CARE/OTHER HOSP This patient is new to me today: No Emergency Visit: Yes ED Registration Date: 12/10/19 Care time: The patient presented to the Emergency Department on the above date and was hospitalized for further evaluation of their emergent condition. Critical Care patient: No Exam Limitations: No Limitations - Ebola screening Have you traveled outside of the country in the last 21 days: No Have you had contact with anyone from an Ebola affected area: No Have you been sick,other than usual withdrawal symptoms: No Do you have a fever: No - Review of Systems Constitutional: Chills, Loss of Appetite, Malaise, Night Sweats, Changes in sleep EENT: reports: Other (RUNNY NOSE) Respiratory: reports: No Symptoms reported Cardiac: reports: No Symptoms Reported GI: reports: Nausea, Poor Appetite, Abdominal cramping : reports: No Symptoms Reported Musculoskeletal: reports: Back Pain, Joint Pain Integumentary: reports: Sweating Neuro: reports: Seizure (WITHDRAWAL SZ, LAST EPISODE 1 YEAR AGO) Endocrine: reports: No Symptoms Reported Hematology: reports: No Symptoms Reported Psychiatric: reports: Orientated x3, Agitated (IRRITABLE), Anxious, Depressed Other Systems: Reviewed and Negative Patient History - Patient Medical History Hx Anemia: No Hx Asthma: No Hx Chronic Obstructive Pulmonary Disease (COPD): No Hx Cancer: No Hx Cardiac Disorders: No Hx Congestive Heart Failure: No Hx Hypertension: No Hx Hypercholesterolemia: No Hx Pacemaker: No HX Cerebrovascular Accident: No Hx Seizures: Yes (WITHDRAWAL , LAST 1 YEAR AGO) Hx Dementia: No Hx Diabetes: No Hx Gastrointestinal Disorders: Yes (PANCREATITIS) Hx Liver Disease: Yes Hx Genitourinary Disorders: No Hx Sexually Transmitted Disorders: No Hx Renal Disease (ESRD): Yes (ARF, HX/O HD) Hx Thyroid Disease: No Hx Human Immunodeficiency Virus (HIV): No Hx Hepatitis C: No Hx Depression: Yes Hx Suicide Attempt: Yes (LAST ATTEMPT 1 MONTH AGO, OVERDOSING) Hx Bipolar Disorder: No Hx Schizophrenia: No Other Medical History: DENIES - Patient Surgical History Past Surgical History: Yes Hx Appendectomy: Yes Anesthesia Reaction: No - PPD History Previous Implant?: Yes Documented Results: Negative w/o proof Implanted On Prior [facility] Admission?: No Date: 12/10/19 Results: NEG CXR PPD to be Administered?: No - Smoking Cessation Smoking history: Current every day smoker Have you smoked in the past 12 months: Yes Aproximately how many cigarettes per day: 5 Hx Chewing Tobacco Use: No Initiated information on smoking cessation: Yes 'Breaking Loose' booklet given: 12/12/19 - Substance & Tx. History Hx Alcohol Use: Yes Hx Substance Use: Yes Substance Use Type: Alcohol, Heroin Hx Substance Use Treatment: Yes ([facility]) - Substances abused Heroin Substance route: Inhalation Frequency: Daily Amount used: 10 BAGS Age of first use: 24 Date of last use: 12/10/19 Alcohol Other (specify): WHISKEY, COGNAC Frequency: Daily Amount used: 12 NIPS Age of first use: 41 Date of last use: 12/10/19 Admission Physical Exam [facility] - Vital Signs Vital Signs: Vital Signs - 24 hr 12/12/19 12/12/19 19:10 20:31 Temperature 97.9 F 97.9 F Pulse Rate 76 76 Respiratory 18 18 Rate Blood Pressure 121/79 121/79 - Physical General Appearance: Yes: Moderate Distress, Tremorous, Irritable, Sweating, Anxious HEENTM: Yes: EOMI, Normocephalic, Normal Voice, ROSALIA, Pharynx Normal Respiratory: Yes: Chest Non-Tender, Lungs Clear, Normal Breath Sounds, No Respiratory Distress, No Accessory Muscle Use Neck: Yes: No masses,lesions,Nodules, Supple, Trachea in good position Breast: Yes: Breasts Symetrical Cardiology: Yes: Regular Rhythm, Regular Rate, S1, S2 Abdominal: Yes: Normal Bowel Sounds, Soft, Tenderness (llq) Genitourinary: Yes: Within Normal Limits Back: Yes: Normal Inspection Musculoskeletal: Yes: full range of Motion, Gait Steady Extremities: Yes: Normal Capillary Refill, Normal Range of Motion, Non-Tender, Tremors Neurological: Yes: Fully Oriented, Alert, Motor Strength 5/5 Integumentary: Yes: Dry, Warm, Track Ybarra (neck, arms) Lymphatic: Yes: Within Normal Limits - Diagnostic (1) Alcohol dependence with withdrawal, uncomplicated Current Visit: Yes Status: Acute (2) Opioid dependence with withdrawal Current Visit: Yes Status: Acute (3) Depressed affect Current Visit: Yes Status: Suspected (4) Substance induced mood disorder Current Visit: Yes Status: Acute (5) Pancreatitis Current Visit: Yes Status: Acute Cleared for Admission [facility] - Detox or Rehab [facility] Level of Care: Medically Managed Detox Regimen/Protocol: Methadone/Librium Claeared for Rehab Admission: No Breathalyzer - Breathalyzer Breathalyzer: 0 Urine Drug Screen - Test Device Lot number: [id number] Expiration date: 02/01/21 - Control Is test valid?: Yes - Results Drug screen NEGATIVE: No Urine drug screen results: FEN-Fentanyl, MTD-Methadone, BZO-Benzodiazepines Inpatient Rehab Admission - Rehab Decision to Admit Inpatient rehab admission?: No
[2019-12-12] MEDS ORDERED: MENTHOL/PHENOL 1 EACH UD MM PRN (21:11)
[2019-12-12] MEDS ORDERED: NICOTINE POLACRILEX 2 MG GUM BUC PRN (21:11)
[2019-12-12] MEDS ORDERED: cloNIDine HCL 0.1 MG TABLET PO PRN (21:11)
[2019-12-12] MEDS ORDERED: METHOCARBAMOL 500 MG TABLET PO PRN (21:11)
[2019-12-12] MEDS ORDERED: MAGNESIUM CITRATE 300 ML BOTTLE PO PRN (21:11)
[2019-12-12] MEDS ORDERED: guaiFENesin 200 MG/10 ML 10 ML UNIT-DOSE CUPS PO PRN (21:11)
[2019-12-12] MEDS ORDERED: DICYCLOMINE HCL 10 MG CAPSULE PO PRN (21:11)
[2019-12-12] MEDS ORDERED: ACETAMINOPHEN 325 MG TABLET (FP) PO PRN ×2 (21:11)
[2019-12-12] MEDS ORDERED: P-EPHED 60MG/TRIPROLIDI 2.5MG TABLET PO PRN (21:11)
[2019-12-12] MEDS ORDERED: MAG HYDROX/AL HYDROX/SIMETH 30 ML UNIT-DOSE CUP PO PRN (21:11)
[2019-12-12] MEDS ORDERED: ONDANSETRON *ODT* 4 MG TABLET SL ONE (21:30)
[2019-12-12] MEDS: hydrOXYzine PAMOATE 25 MG CAPSULE (FP) PO SCH (22:50)
[2019-12-12] MEDS: THIAMINE HCL 100 MG TABLET (FP) PO SCH (22:50)
[2019-12-12] MEDS: MELATONIN 5 MG TABLETS PO SCH (22:50)
[2019-12-12] MEDS ORDERED: chlordiazePOXIDE HCL 25 MG CAPSULE PO SCH (23:00)
[2019-12-13] MEDS: hydrOXYzine PAMOATE 25 MG CAPSULE (FP) PO SCH ×5 (06:25→22:29)
[2019-12-13] MEDS: chlordiazePOXIDE HCL 10 MG CAPSULE PO SCH ×4 (06:25→22:29)
[2019-12-13] MEDS ORDERED: METHADONE HCL 10 MG TABLET (FOR DETOX USE ONLY) PO ONE (10:00)
[2019-12-13] MEDS: PANTOPRAZOLE 40 MG TABLET PO SCH (10:01)
[2019-12-13] MEDS: PRENATAL VITAMINS W/ FOLIC ACID TABLET (FP) PO SCH (10:01)
[2019-12-13] MEDS: NICOTINE 14 MG/24 HOURS TOPICAL PATCH TD SCH (10:01)
--- NOTE | 2019-12-13 11:24 | PN ---
S CIWA - CIWA Score Nausea/Vomitin-No Nausea/No Vomiting Muscle Tremors: None Anxiety: 3 Agitation: 2 Paroxysmal Sweats: 3 Orientation: 0-Oriented Tacttile Disturbances: 0-None Auditory Disturbances: 0-None Visual Disturbances: 0-None Headache: 2-Mild CIWA-Ar Total Score: 10 S COWS - Scale Resting Pulse: 0= [place] 80 or Below Sweatin= Beads of Sweat on Face Restless Observation: 1= Difficult to Sit Still Pupil Size: 0= Normal to Room Light Bone or Joint Aches: 2= Severe Diffuse Aches Runny Nose/ Eye Tearin= None GI Upset > 30mins: 0= None Tremor Observation of Outstretched Hands: 0= None Yawning Observation: 1= 1-2x During Session Anxiety or Irritability: 2=Irritable/Anxious Goose Flesh Skin: 0=Smooth Skin COWS Score: 9 [facility] Progress Note (SOAP) Subjective: c/o sweats, anxiety, muscle aches, and headache. Objective: 12/13/19 11:34 Vital Signs 12/13/19 12/13/19 12/13/19 07:05 07:40 10:05 Temperature 97.8 F 97.5 F L Pulse Rate 87 69 Respiratory 18 18 Rate Blood Pressure 155/97 126/97 134/88 O2 Sat by Pulse 99 98 Oximetry (%) Labs pending. Assessment: 12/13/19 11:34 AOx 3, in no acute respiratory distress. Full ROM, ambulating in the unit. Withdrawal symptoms. Plan: continue detox.
[2019-12-13 11:51] LABS: ALBUMIN 4.1 g/dl (3.4-5.0); BILIRUBIN,TOTAL 0.5 mg/dL (0.2-1); BLOOD UREA NITROGEN 13.2 mg/dL (7-18); CALCIUM 9.1 mg/dL (8.5-10.1); TOT PROT 7.7 g/dl (6.4-8.2)
[2019-12-13] MEDS: MAGNESIUM HYDROX 2400MG/30ML ORAL SUSPENSION 30 ML CUP PO PRN (11:56)
--- NOTE | 2019-12-13 13:31 | CONSULT ---
[facility] Psychiatric Consult - Data Date of interview: 12/13/19 Admission source: [facility] Identifying data: First visit to [facility] and admission to [address] [place] [address] for detoxification treatment. ASHIA issues : alcohol, heroin, nicotine. 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 Substance Abuse History: Discussed with the patient. ASHIA profile as follows : Smoking history: Current every day smoker. Have you smoked in the past 12 months: Yes. Aproximately how many cigarettes per day: 5. Hx Chewing Tobacco Use: No. Initiated information on smoking cessation: Yes. 'Breaking Loose' booklet given: 12/12/19. - Substance & Tx. History. Hx Alcohol Use: Yes. Hx Substance Use: Yes. Substance Use Type: Alcohol, Heroin. Hx Substance Use Treatment: Yes ([facility]). - Substances abused. Heroin. Substance route: Inhalation. Frequency: Daily. Amount used: 10 BAGS. Age of first use: 24. Date of last use: 12/10/19. Alcohol. Other (specify): WHISKEY, COGNAC. Frequency: Daily. Amount used: 12 NIPS. Age of first use: 41. Date of last use: 12/10/19 Medical History: Remarkable for sciatica, pancreatitis and a history of acute renal failure (spent one month on dialysis, three years ago). Psychiatric History: Distant history of one psychiatric hospitalization (age 20 : reason not recalled by patient) in [facility]. No rehospitalizations and unremarkable behavioral profile with the exception of substance disorders. No OPD care or suicide attempts. Physical/Sexual Abuse/Trauma History: Patient denies. Additional Comment: Urine drug screen results: FEN-Fentanyl, MTD-Methadone, BZO- Benzodiazepines. Noted. Mental Status Exam - Mental Status Exam Alert and Oriented to: Time, Place, Person Cognitive Function: Good Patient Appearance: Well Groomed Mood: Nervous, Withdrawn, Hopeful Affect: Appropriate, Normal Range Patient Behavior: Appropriate, Cooperative Speech Pattern: Clear, Appropriate Voice Loudness: Normal Thought Process: Intact, Goal Oriented Thought Disorder: Not Present Hallucinations: Denies Suicidal Ideation: Denies Homicidal Ideation: Denies Insight/Judgement: Fair Sleep: Poorly, Difficulty falling asleep Appetite: Good Gait/Station: Normal Psychiatric Findings - Problem List ([place] 1, 2,3) (1) Alcohol dependence with withdrawal, uncomplicated Current Visit: Yes Status: Acute (2) Opioid dependence with withdrawal Current Visit: Yes Status: Acute (3) Nicotine dependence Current Visit: Yes Status: Chronic (4) Substance induced mood disorder Current Visit: Yes Status: Chronic (5) Insomnia Current Visit: Yes Status: Chronic - Initial Treatment Plan Initial Treatment Plan: Psychoeducation. Sllep hygiene. Detoxification in progress. Insomnia is addressed with belsomra 10 mg po hs prn. Side effects/benefits discussed with patient. Informed consent (verbal) granted to MD. Chaudhari.
[2019-12-13] MEDS: MELATONIN 5 MG TABLETS PO SCH (22:29)
[2019-12-13] MEDS: THIAMINE HCL 100 MG TABLET (FP) PO SCH (22:29)
[2019-12-14] MEDS ORDERED: METHADONE HCL 5 MG TABLET (FOR DETOX USE ONLY) PO ONE (06:00)
[2019-12-14] MEDS: hydrOXYzine PAMOATE 25 MG CAPSULE (FP) PO SCH ×5 (06:14→22:04)
[2019-12-14] MEDS: chlordiazePOXIDE HCL 10 MG CAPSULE PO SCH ×2 (06:14→17:42)
[2019-12-14] MEDS: PRENATAL VITAMINS W/ FOLIC ACID TABLET (FP) PO SCH (10:03)
[2019-12-14] MEDS: NICOTINE 14 MG/24 HOURS TOPICAL PATCH TD SCH (10:03)
[2019-12-14] MEDS: PANTOPRAZOLE 40 MG TABLET PO SCH (10:03)
[2019-12-14] MEDS: IBUPROFEN 400 MG TABLET (FP) PO PRN (11:39)
--- NOTE | 2019-12-14 12:08 | PN ---
[facility] CIWA - CIWA Score Nausea/Vomitin-No Nausea/No Vomiting Muscle Tremors: 2 Anxiety: 2 Agitation: 2 Paroxysmal Sweats: 2 Orientation: 0-Oriented Tacttile Disturbances: 0-None Auditory Disturbances: 0-None Visual Disturbances: 0-None Headache: 0-None Present CIWA-Ar Total Score: 8 S COWS - Scale Resting Pulse: 1= [place] 81-100 Sweatin= Chills/Flushing Restless Observation: 0= Sits Still Pupil Size: 0= Normal to Room Light Bone or Joint Aches: 1= Mild Discomfort Runny Nose/ Eye Tearin= Runny Nose/Eyes GI Upset > 30mins: 1= Stomach Cramp Tremor Observation of Outstretched Hands: 0= None Yawning Observation: 0= None Anxiety or Irritability: 2=Irritable/Anxious Goose Flesh Skin: 0=Smooth Skin COWS Score: 8 [facility] Progress Note (SOAP) Subjective: Stomachache, interrupted sleep, poor appetite, a little blurry vision, bad dreams, anxious Objective: 12/14/19 12:06 Last Vital Signs Temp Pulse Resp BP Pulse Ox 97.8 F 82 16 115/79 97 12/14/19 08:53 12/14/19 08:53 12/14/19 08:53 12/14/19 08:53 12/14/19 07:00 Laboratory Tests 12/13/19 12/13/19 07:55 07:55 Sodium 139 Potassium 4.0 Chloride 104 Carbon Dioxide 24 Anion Gap 11 BUN 13.2 Creatinine 1.0 Est GFR (CKD-EPI)AfAm 104.88 Est GFR (CKD-EPI)NonAf 90.49 Random Glucose 157 H Calcium 9.1 Total Bilirubin 0.5 AST 121 H ALT 114 H Alkaline Phosphatase 132 H Total Protein 7.7 Albumin 4.1 Syphilis Serology Non-reactive Labs reviewed: serum gluc 157mg/dl (high, denies DM), AST/ALT, Alk phos (high); As per WBC result: plts 118; UA abnormal on 12/09 Assessment: 12/14/19 12:07 Withdrawal sxs Noted with thrombocytopenia, hyperglycemia, elevated LFTs and abnormal UA Plan: Continue detox Encouraged PO water hydration Librium 10mg PO daily extended until 12/16/19 at 0600 due to increased withdrawal sxs, discharge also extended to Sunday but if patient feels better and wants to leave tomorrow then can discharge him with follow up with PCP within 3 days. Thrombocytopenia: could be r/t alcohol use, encouraged abstinence, follow up with PCP post discharge for management Hyperglycemia: denies DM, repeat fasting glucose, check A1c Elevated LFTs: repeat hepatic function panel, trending downward as per admission note and Abdominal US shows hepatomegaly and fatty liver Abnormal UA: encouraged to drink more water, repeat UA (reordered stat)
[2019-12-14 15:25] LABS: PH,URINE 7.5 (5.0-8.0); URINE APPEARANCE CLEAR; URINE BILIRUBIN NEGATIVE (NEGATIVE); URINE COLOR YELLOW; URINE GLUCOSE (UA) NEGATIVE (NEGATIVE); URINE KETONE NEGATIVE (NEGATIVE); URINE LEUK ESTERASE NEGATIVE (NEGATIVE); URINE NITRITE NEGATIVE (NEGATIVE); URINE PROTEIN NEGATIVE (NEGATIVE); URINE UROBILINOGEN 0.2 mg/dL (0.2-1.0)
[2019-12-14] MEDS: MAGNESIUM HYDROX 2400MG/30ML ORAL SUSPENSION 30 ML CUP PO PRN (15:54)
[2019-12-14] MEDS: MELATONIN 5 MG TABLETS PO SCH (22:03)
[2019-12-14] MEDS: THIAMINE HCL 100 MG TABLET (FP) PO SCH (22:04)
[2019-12-15] MEDS ORDERED: chlordiazePOXIDE HCL 10 MG CAPSULE PO PRN
[2019-12-15] MEDS ORDERED: chlordiazePOXIDE HCL 10 MG CAPSULE PO ONE (05:00)
[2019-12-15] MEDS: hydrOXYzine PAMOATE 25 MG CAPSULE (FP) PO SCH ×5 (06:07→21:42)
[2019-12-15] MEDS: IBUPROFEN 400 MG TABLET (FP) PO PRN (08:46)
[2019-12-15] MEDS: NICOTINE 14 MG/24 HOURS TOPICAL PATCH TD SCH (10:45)
[2019-12-15] MEDS: PRENATAL VITAMINS W/ FOLIC ACID TABLET (FP) PO SCH (10:45)
[2019-12-15] MEDS: PANTOPRAZOLE 40 MG TABLET PO SCH (10:45)
[2019-12-15 11:23] LABS: ALBUMIN 4.1 g/dl (3.4-5.0); BILIRUBIN,DIRECT 0.2 mg/dL (0.0-0.2); BILIRUBIN,TOTAL 1.3 mg/dL (0.2-1); TOT PROT 7.6 g/dl (6.4-8.2)
[2019-12-15] MEDS: BISMUTH SUBSALICYLATE 524 MG/30 ML UD PO PRN ×2 (12:13→16:09)
--- NOTE | 2019-12-15 12:38 | PN ---
[facility] CIWA - CIWA Score Nausea/Vomitin-No Nausea/No Vomiting Muscle Tremors: 1-None Visible, but [place] Anxiety: 1-Mildly Anxious Agitation: 1-Slight > Activity Paroxysmal Sweats: No Perspiration Orientation: 0-Oriented Tacttile Disturbances: 0-None Auditory Disturbances: 0-None Visual Disturbances: 0-None Headache: 1-Very Mild CIWA-Ar Total Score: 4 S COWS - Scale Resting Pulse: 1= [place] 81-100 Sweatin= No chills or Flushing Restless Observation: 0= Sits Still Pupil Size: 0= Normal to Room Light Bone or Joint Aches: 1= Mild Discomfort Runny Nose/ Eye Tearin= None GI Upset > 30mins: 0= None Tremor Observation of Outstretched Hands: 0= None Yawning Observation: 0= None Anxiety or Irritability: 2=Irritable/Anxious Goose Flesh Skin: 0=Smooth Skin COWS Score: 4 S Progress Note (SOAP) Subjective: alert,irritable,anxious feel much better no abdominal pain,aching pain in the back Objective: 12/15/19 12:37 Vital Signs Temperature 97.1 F L 12/15/19 09:45 Pulse Rate 83 12/15/19 09:45 Respiratory Rate 18 12/15/19 09:45 Blood Pressure 131/84 12/15/19 09:45 O2 Sat by Pulse Oximetry (%) 96 12/15/19 09:45 12/15/19 12:37 Laboratory Last Values Sodium 139 mmol/L (136-145) 12/13/19 07:55 Potassium 4.0 mmol/L (3.5-5.1) 12/13/19 07:55 Chloride 104 mmol/L (98-107) 12/13/19 07:55 Carbon Dioxide 24 mmol/L (21-32) 12/13/19 07:55 Anion Gap 11 MMOL/L (8-16) 12/13/19 07:55 BUN 13.2 mg/dL (7-18) 12/13/19 07:55 Creatinine 1.0 mg/dL (0.55-1.3) 12/13/19 07:55 Est GFR (CKD-EPI)AfAm 104.88 12/13/19 07:55 Est GFR (CKD-EPI)NonAf 90.49 12/13/19 07:55 Random Glucose 157 mg/dL (74-106) H 12/13/19 07:55 Fasting Glucose 100 mg/dL (74-106) 12/15/19 08:00 Hemoglobin A1c % 6.7 % (4.2-6.3) H 12/15/19 08:00 Calcium 9.1 mg/dL (8.5-10.1) 12/13/19 07:55 Total Bilirubin 1.3 mg/dL (0.2-1) H 12/15/19 08:00 Direct Bilirubin 0.2 mg/dL (0.0-0.2) 12/15/19 08:00 AST 308 U/L (15-37) H 12/15/19 08:00 ALT 285 U/L (13-61) H 12/15/19 08:00 Alkaline Phosphatase 120 U/L (45-117) H 12/15/19 08:00 Total Protein 7.6 g/dl (6.4-8.2) 12/15/19 08:00 Albumin 4.1 g/dl (3.4-5.0) 12/15/19 08:00 Urine Color Yellow 12/14/19 13:33 Urine Appearance Clear 12/14/19 13:33 Urine pH 7.5 (5.0-8.0) D 12/14/19 13:33 Ur Specific [place] 1.002 (1.010-1.035) L 12/14/19 13:33 Urine Protein Negative (NEGATIVE) 12/14/19 13:33 Urine Glucose (UA) Negative (NEGATIVE) 12/14/19 13:33 Urine Ketones Negative (NEGATIVE) 12/14/19 13:33 Urine Blood Negative (NEGATIVE) 12/14/19 13:33 Urine Nitrite Negative (NEGATIVE) 12/14/19 13:33 Urine Bilirubin Negative (NEGATIVE) 12/14/19 13:33 Urine Urobilinogen 0.2 mg/dL (0.2-1.0) 12/14/19 13:33 Ur Leukocyte Esterase Negative (NEGATIVE) 12/14/19 13:33 Syphilis Serology Non-reactive (NONREACTIVE) 12/13/19 07:55 Assessment: 12/15/19 12:38 mild withdrawal symptom Plan: more elevation of ast,alt,fasting glucose 100,hb a1c 6.7,will d/c librium, to give ativan instead,discharge in am to go to rehab at [facility],in [place] this patient was treated for pancreatitis at [facility] from 12/10/2019 to 12/12/2019 had covid 19 test on 12/10/2019 not detected advise life style change on diet,no sugar
[2019-12-15] MEDS: LORazepam 0.5 MG TABLET PO SCH ×2 (17:35→22:00)
[2019-12-15] MEDS: THIAMINE HCL 100 MG TABLET (FP) PO SCH (21:41)
[2019-12-15] MEDS: MELATONIN 5 MG TABLETS PO SCH (22:00)
[2019-12-16] MEDS ORDERED: chlordiazePOXIDE HCL 10 MG CAPSULE PO ONE (06:00)
[2019-12-16] MEDS: hydrOXYzine PAMOATE 25 MG CAPSULE (FP) PO SCH ×2 (06:18→10:35)
[2019-12-16] MEDS: LORazepam 0.5 MG TABLET PO SCH (06:18)
[2019-12-16] MEDS: PANTOPRAZOLE 40 MG TABLET PO SCH (10:35)
[2019-12-16] MEDS: PRENATAL VITAMINS W/ FOLIC ACID TABLET (FP) PO SCH (10:35)
[2019-12-16] MEDS: NICOTINE 14 MG/24 HOURS TOPICAL PATCH TD SCH (10:36)
[2019-12-16 12:27] VITALS: BP 138/90; PULSE 73; TEMP 98.8
--- NOTE | 2019-12-16 14:32 | DS ---
[facility] Detox Discharge Summary Admission Date: 12/12/19 Discharge Date: 12/16/19 - History Present History: Alcohol Dependence, Opioid Dependence Pertinent Past History: Pancreatitis Insomnia - Physical Exam Results Vital Signs: Vital Signs Temperature 98.8 F 12/16/19 10:33 Pulse Rate 73 12/16/19 10:33 Respiratory Rate 18 12/16/19 10:33 Blood Pressure 138/90 12/16/19 10:33 O2 Sat by Pulse Oximetry (%) 96 12/16/19 10:33 alert o x 3 nad oob ambulating with steady gait Active ROM all extremities cardiac:s1 s2, rrr lungs;ctab abdomen:soft,+bs,nt,nd extremities; Pertinent Admission Physical Exam Findings: Laboratory Tests 12/13/19 12/13/19 12/14/19 07:55 07:55 13:33 Sodium 139 Potassium 4.0 Chloride 104 Carbon Dioxide 24 Anion Gap 11 BUN 13.2 Creatinine 1.0 Est GFR (CKD-EPI)AfAm 104.88 Est GFR (CKD-EPI)NonAf 90.49 Random Glucose 157 H Fasting Glucose Hemoglobin A1c % Calcium 9.1 Total Bilirubin 0.5 Direct Bilirubin AST 121 H ALT 114 H Alkaline Phosphatase 132 H Total Protein 7.7 Albumin 4.1 Urine Color Yellow Urine Appearance Clear Urine pH 7.5 D Ur Specific [place] 1.002 L Urine Protein Negative Urine Glucose (UA) Negative Urine Ketones Negative Urine Blood Negative Urine Nitrite Negative Urine Bilirubin Negative Urine Urobilinogen 0.2 Ur Leukocyte Esterase Negative Syphilis Serology Non-reactive 12/15/19 12/15/19 08:00 08:00 Sodium Potassium Chloride Carbon Dioxide Anion Gap BUN Creatinine Est GFR (CKD-EPI)AfAm Est GFR (CKD-EPI)NonAf Random Glucose Fasting Glucose 100 Hemoglobin A1c % 6.7 H Calcium Total Bilirubin 1.3 H Direct Bilirubin 0.2 AST 308 H ALT 285 H Alkaline Phosphatase 120 H Total Protein 7.6 Albumin 4.1 Urine Color Urine Appearance Urine pH Ur Specific [place] Urine Protein Urine Glucose (UA) Urine Ketones Urine Blood Urine Nitrite Urine Bilirubin Urine Urobilinogen Ur Leukocyte Esterase Syphilis Serology Pt was seen and admitted briefly at [facility] for Pancreatitis before referring to him to detox at [facility]. pt will follow up with his PCP with lab results for medical management after discharge. pt has been referred to [facility], [address] [place] [address]. [place], [place] for medical management. - Treatment Hospital Course: Detox Protocol Followed, Detoxed Safely, Responded well, Discharged Condition Good, Rehab Referral Accepted Patient has Accepted a Rehab Referral to: [facility], [place], [place] - Diagnosis (1) Alcohol dependence with withdrawal, uncomplicated Status: Acute (2) Opioid dependence with withdrawal Status: Acute (3) Nicotine dependence Status: Acute Qualifiers: Nicotine product type: cigarettes Substance use status: in withdrawal Qualified Code(s): F17.213 - Nicotine dependence, cigarettes, with withdrawal - AMA Did Patient Leave Against Medical Advice: No
== END 2019-12-16 12:49 | disposition home or self-care (01) | DRG 773 ==
LOC: YASAS 18:39 → Y5N DETOX 20:39
PROVIDERS: ADMIT Allergy & Immunology; ATTEND Allergy & Immunology
PROC: HZ2ZZZZ Detoxification Services for Substance Abuse Treatment (ICD-10-PCS; principal; 2019-12-12)
DX: F10.230 Alcohol dependence with withdrawal, uncomplicated (principal); F11.23 Opioid dependence with withdrawal; F17.213 Nicotine dependence, cigarettes, with withdrawal; F19.24 Other psychoactive substance dependence with psychoactive substance-induced mood disorder; G47.00 Insomnia, unspecified; D69.6 Thrombocytopenia, unspecified; K86.89 Other specified diseases of pancreas; M54.30 Sciatica, unspecified side; R94.5 Abnormal results of liver function studies; R73.9 Hyperglycemia, unspecified; R45.89 Other symptoms and signs involving emotional state; R82.90 Unspecified abnormal findings in urine; Z87.448 Personal history of other diseases of urinary system; Z91.5 Personal history of self-harm; Z86.69 Personal history of other diseases of the nervous system and sense organs
CPT/HCPCS: 36415; 80053; 80076; 81003; 82947; 83036; 86780